=== PATIENT | female | born 1960 | race Caucasian/White ===

== ENCOUNTER 2017-12-19 08:06 | Emergency (ER) | payer OTHER ==
[~2017-12-19] VITALS: Ht 162.6 cm; Wt 115.7 kg
[~2017-12-19 08:06] MED LIST: AMLODIPINE BESYL5 M1 PO; COLESTID1 GM; DOXYCYCLINE 10100 MG PO; ESTROVEN 155 M155 MG PO; LEVOTHYROXINE0.2 M1; LISINOPRIL10 MG PO; LOPRESSOR50; NORCO 5-325 TA1 EACH; NORCO 5-325 TA1 EACH PO; PROZAC20 MG PO; VASOTEC10 MG; VENLAFAXIN75 MG/1 T2; VITAMIN D 5050000 I1; XANAX 0.5 MG0.5 MG PO; levoxyl
[2017-12-19] MEDS ORDERED: BRINTELLIX10 MG PO (08:20)
[2017-12-19] MEDS ORDERED: VASOTEC10 MG PO (08:20)
[2017-12-19] MEDS ORDERED: ESTRADIOL 1 MG T1 M1 PO (08:21)
[2017-12-19 08:55] LABS: INFLUENZA A ANTIGEN None Detected (None Detect); INFLUENZA B ANTIGEN None Detected (None Detect)
[2017-12-19] MEDS ORDERED: ZPAK PO (08:58)
[2017-12-19 09:15] VITALS: BP 144/83
== END 2017-12-19 09:16 | disposition home or self-care (01) ==
LOC: M.ERS 08:06
PROVIDERS: Emergency Medicine Emergency Medical Services
DX: J18.9 Pneumonia, unspecified organism (principal); I10 Essential (primary) hypertension; R05 Cough; R51 Headache; Z90.710 Acquired absence of both cervix and uterus; Z98.51 Tubal ligation status; Z90.49 Acquired absence of other specified parts of digestive tract; Z88.0 Allergy status to penicillin; Z91.041 Radiographic dye allergy status; Z85.850 Personal history of malignant neoplasm of thyroid

== ENCOUNTER 2018-03-06 08:41 | Emergency (ER) | payer OTHER ==
[~2018-03-06] VITALS: Ht 162.6 cm; Wt 108.9 kg
[~2018-03-06 08:41] MED LIST changes: +BRINTELLIX10 MG PO; +ESTRADIOL 1 MG T1 M1 PO; +VASOTEC10 MG PO; +ZPAK PO
[2018-03-06] MEDS ORDERED: MEDROL DOSPAK21 TA1 PO (09:06)
[2018-03-06] MEDS ORDERED: KEFLEX500 M1 PO (09:06)
[2018-03-06] MEDS ORDERED: SSD CREAM 1% 5050 GM TOP (09:07)
[2018-03-06 09:12] VITALS: BP 131/80
== END 2018-03-06 09:12 | disposition home or self-care (01) ==
LOC: M.ERS 08:41
DX: T65.891A Toxic effect of other specified substances, accidental (unintentional), initial encounter (principal); L25.3 Unspecified contact dermatitis due to other chemical products; I10 Essential (primary) hypertension; F32.9 Major depressive disorder, single episode, unspecified; E89.0 Postprocedural hypothyroidism; F17.210 Nicotine dependence, cigarettes, uncomplicated; Z90.710 Acquired absence of both cervix and uterus; Z85.850 Personal history of malignant neoplasm of thyroid; Z88.0 Allergy status to penicillin; Z91.041 Radiographic dye allergy status; Y92.89 Other specified places as the place of occurrence of the external cause

== ENCOUNTER → 2018-06-26 | Outpatient (CLI) | payer OTHER ==
[~2018-06-26] MED LIST changes: +KEFLEX500 M1 PO; +MEDROL DOSPAK21 TA1 PO; +SSD CREAM 1% 5050 GM TOP
[2018-06-26 11:29] LABS: ABSOLUTE BASOPHILS 0.1 thou/uL (0.0-0.2); ABSOLUTE EOSINOPHILS 0.1 thou/uL (0.0-0.7); ABSOLUTE LYMPHOCYTES 2.7 thou/uL (0.8-5.3); ABSOLUTE MONOCYTES 0.5 thou/uL (0.0-1.2); ABSOLUTE NEUTROPHILS 6.2 thou/uL (1.6-8.1); BASOPHILS 1.1 %; EOSINOPHILS 1.4 %; HEMATOCRIT 44.6 % (37.0-47.0); LYMPHOCYTES 28.3 %; MCHC 33.5 g/dL (28.0-37.0); MCV 92.4 fL (80.0-100.0); MONOCYTES 4.7 %; MPV 6.8 fl. (7.2-11.1); NUCLEATED RBCS 0 /100WBC; PLATELET COUNT* 303 thou/uL (150-400); POLYS 64.5 %; RBC 4.83 mil/uL (4.20-5.00); WBC 9.7 thou/uL (4.0-11.0)
[2018-06-26 11:42] LABS: ALBUMIN 3.6 g/dL (3.4-5.0); ALKALINE PHOSPHATASE 74 U/L (46-116); ANION GAP 4 mmol/L (7-16); BUN 17 mg/dL (7-18); CALCIUM 8.2 mg/dL (8.5-10.1); CHLORIDE 103 mmol/L (98-107); CHOLESTEROL 260 mg/dL (<200); CO2 31 mmol/L (21-32); CREATININE 0.6 mg/dL (0.6-1.3); GLUCOSE 91 mg/dL (70-99); HDL CHOLESTEROL 67 mg/dL (>40); LDL CHOLESTEROL 171 mg/dL (<100); POTASSIUM 4.7 mmol/L (3.5-5.1); SERUM ASSESSMENT Clear; SGOT 12 U/L (15-37); SGPT 15 U/L (30-65); SODIUM 138 mmol/L (136-145); TC:HDL 3.9 Ratio (Not establshd); TOTAL BILIRUBIN 0.4 mg/dL (<0.1-1.0); TOTAL PROTEIN 7.4 g/dL (6.4-8.2); TRIGLYCERIDE 113 mg/dL (<150); VLDL 23 mg/dL (<40)
[2018-06-27 02:06] LABS: GLYCOHEMOGLOBIN (HGB A1C) 5.2 % (4.8-5.6)
--- NOTE | 2018-06-28 10:21 | EKG ---
[place] [address] ELECTROCARDIOGRAM REPORT Name: KYLEE SUMNER Room: [facility]#: [id number] Admission: 06/26/18 Attend Phys: CANDIDA Diamond Discharge: Date of : 62 Report #: [id number] THIS REPORT FOR: //name// [facility] Test Date: 2018-06-26 Test Time: 11:34:02 Pat Name: KYLEE TRINHORY Department: Room: Gender: Building And Grounds Supervisor: : 1960 Requested By: Shante Giang Order Number: [id number] Reading MD: Kun Salvador Measurements Intervals [place] Rate: 69 P: 51 [place]: 160 QRS: 18 QRSD: 99 T: 31 QT: 434 QTc: 465 Interpretive Statements Sinus rhythm Compared to ECG 04/09/2017 14:00:34 Inferior Q waves no longer present Q waves no longer present Electronically Signed On 06-28-2018 10:21:09 CDT by Kun Salvador [email or web address] <ELECTRONICALLY SIGNED> By: Kun Salvador MD, [facility] 06/28/18 1021 1134 1134 Kun Salvador MD, [facility] /EPI
== END ==
LOC: M.RAD 10:56
PROVIDERS: Nurse Practitioner Family
DX: M19.021 Primary osteoarthritis, right elbow (principal); I10 Essential (primary) hypertension; N95.1 Menopausal and female climacteric states; E03.9 Hypothyroidism, unspecified; E55.9 Vitamin D deficiency, unspecified; Z85.850 Personal history of malignant neoplasm of thyroid

== ENCOUNTER → 2018-07-17 | Outpatient (CLI) | payer OTHER ==
--- NOTE | 2018-07-17 15:53 | 2DMMODE ---
[place] [address] 2 D/M-MODE ECHOCARDIOGRAM Name: KYLEE SUMNER Room: [facility]#: [id number] Admission: 07/17/18 Attend Phys: Kun Salvador, Discharge: Date of : 62 Date of Service: 07/17/18 1553 Report #: [id number] THIS REPORT FOR: //name// APPROVED REPORT Study performed: 07/17/2018 08:03:27 EXAM: Comprehensive 2D, Doppler, and color-flow Echocardiogram Patient Location: Out-Patient Status: routine BSA: 2.11 HR: 77 bpm BP: 132/98 mmHg Other Information Study Quality: Good Indications Murmur Palpitations 2D Dimensions LVEF(%): 73.31 (>50%) IVSd: 12.35 (7-11mm) LVOT Diam: 20.32 (18-24mm) LVDd: 43.24 mm PWd: 10.71 (7-11mm) Ascending Ao: 34.68 (22-36mm) LVDs: 25.06 (25-40mm) Aortic Root: 26.87 mm Mace's LVEF: 73.31 % Volumes Left Atrial Volume (Systole) LA ESV Index: 15.20 mL/m2 Aortic Valve AoV Peak Dong.: 1.34 m/s AO Peak Gr.: 7.16 mmHg LVOT Max P.48 mmHg AO Mean Gr.: 3.46 mmHg LVOT Mean P.15 mmHg LVOT Max V: 0.79 m/s AO V2 VTI: 24.68 cm LVOT Mean V: 0.49 m/s HANNY (VTI): 2.45 cm2 LVOT V1 VTI: 18.62 cm Mitral Valve E/A Ratio: 0.84 [place] [address] 2 D/M-MODE ECHOCARDIOGRAM Name: KYLEE SUMNER Room: [facility]#: [id number] Admission: 07/17/18 Attend Phys: Kun Salvador, Discharge: Date of : 62 Date of Service: 07/17/18 1553 Report #: [id number] MV Decel. Time: 256.92 ms MV E Max Dong.: 0.59 m/s MV PHT: 74.51 ms MVA (PHT): 2.95 cm2 TDI E/Lateral E': 4.21 E/Medial E': 6.56 Medial E' Dong.: 0.09 m/s Lateral E' Dong.: 0.14 m/s Pulmonary Valve PV Peak Dong.: 0.81 m/s PV Peak Gr.: 2.62 mmHg Left Ventricle The left ventricle is normal size. There is normal LV segmental wall motion. There is normal left ventricular wall thickness. Left ventricular systolic function is normal. The left ventricular ejection fraction is within the normal range. LVEF is 55-60%. Grade I - abnormal relaxation pattern. Right Ventricle The right ventricle is normal size. The right ventricular systolic function is normal. Atria The left atrium size is normal. The right atrium size is normal. Aortic Valve The aortic valve is normal in structure. No aortic regurgitation is present. There is no aortic valvular stenosis. Mitral Valve The mitral valve is normal in structure. There is no mitral valve regurgitation noted. No evidence of mitral valve stenosis. Tricuspid Valve The tricuspid valve is normal in structure. Trace tricuspid regurgitation. Pulmonic Valve The pulmonary valve is normal in structure. There is no pulmonic valvular regurgitation. Great Vessels The aortic root is normal in size. IVC [place] [address] 2 D/M-MODE ECHOCARDIOGRAM Name: TAISHAKYLEE Room: [facility]#: [id number] Admission: 07/17/18 Attend Phys: Kun Salvador, Discharge: Date of : 62 Date of Service: 07/17/18 1553 Report #: [id number] collapses with >50% inspiration Pericardium There is no pericardial effusion. <Conclusion> Left ventricular systolic function is normal. The left ventricular ejection fraction is within the normal range. <ELECTRONICALLY SIGNED> By: Arie De Los Santos MD, [facility] 07/17/18 1553 1553 1553 Arie De Los Santos MD, [facility] /INF
== END ==
LOC: M.CRD 07:45
DX: R01.1 Cardiac murmur, unspecified (principal); R00.2 Palpitations

== ENCOUNTER → 2019-01-28 | Outpatient (CLI) | payer OTHER | LOC: M.RAD 14:49 | DX: M17.11 Unilateral primary osteoarthritis, right knee (principal) ==

== ENCOUNTER → 2019-01-31 | Outpatient (CLI) | payer OTHER | LOC: M.MRI 11:15 | DX: M25.861 Other specified joint disorders, right knee (principal); I48.91 Unspecified atrial fibrillation; F32.9 Major depressive disorder, single episode, unspecified; I10 Essential (primary) hypertension; E78.00 Pure hypercholesterolemia, unspecified; G43.909 Migraine, unspecified, not intractable, without status migrainosus; Z90.710 Acquired absence of both cervix and uterus; Z85.850 Personal history of malignant neoplasm of thyroid ==

== ENCOUNTER → 2020-02-24 | Outpatient (CLI) | payer OTHER ==
[~2020-02-24] MED LIST changes: +LEXAPRO 10 MG T10 M2 PO; +LOPRESSOR50 PO
== END ==
LOC: M.RAD 12:03
DX: M25.761 Osteophyte, right knee (principal); M25.562 Pain in left knee

== ENCOUNTER → 2020-12-07 | Outpatient (CLI) | payer OTHER | LOC: M.MRI 08:04 → M.RAD 08:04 → M.MRI 08:30 | PROVIDERS: ATTEND Orthopaedic Surgery | DX: Z12.31 Encounter for screening mammogram for malignant neoplasm of breast (principal); M17.11 Unilateral primary osteoarthritis, right knee; M25.761 Osteophyte, right knee ==

== ENCOUNTER → 2020-12-21 | Outpatient (CLI) | payer OTHER ==
[~2020-12-21] MED LIST changes: +LEVOTHYROXINE200 MC1 PO; +LEXAPRO20 MG PO; +OXYCODONE HCL 55 MG PO; +XARELTO10 M1 PO
[2020-12-21 13:21] LABS: HEMATOCRIT 45.6 % (37.0-47.0); HEMOGLOBIN 15.3 gm/dL (12.0-15.0); MCH 29.7 pg (26.0-34.0); MCHC 33.5 g/dL (28.0-37.0); MCV 88.6 fL (80.0-100.0); MPV 6.9 fl. (7.2-11.1); RBC 5.15 mil/uL (4.20-5.00); RDW-CV 13.1 % (10.5-14.5)
[2020-12-21 13:34] LABS: CALCIUM 8.7 mg/dL (8.5-10.1); CREATININE 0.7 mg/dL (0.6-1.3); POTASSIUM 4.4 mmol/L (3.5-5.1); PROTIME 10.2 Seconds (9.20-11.50); TOTAL BILIRUBIN 0.3 mg/dL (<0.1-1.0); TOTAL PROTEIN 7.6 g/dL (6.4-8.2)
[2020-12-21 13:57] LABS: URINE BILIRUBIN NEGATIVE (Negative); URINE BLOOD NEGATIVE (Negative); URINE CLARITY CLEAR; URINE COLOR YELLOW; URINE GLUCOSE-RANDOM NEGATIVE (Negative); URINE KETONES NEGATIVE (Negative); URINE LEUKOCYTES-REFLEX NEGATIVE (Negative); URINE NITRITE-REFLEX NEGATIVE (Negative); URINE PROTEIN NEGATIVE (Negative); URINE SPECIFIC GRAVITY 1.025 (1.005-1.030); URINE UROBILINOGEN 0.2 E.U./dl (0.2-1.0)
--- NOTE | 2020-12-21 15:26 | EKG ---
[place] [address] ELECTROCARDIOGRAM REPORT Name: TAISHAKYLEE FADI Room: [facility]#: [id number] Admission: 12/21/20 Attend Phys: Navneet Ramirez, Discharge: Date of : 62 Date of Service: 12/21/20 1332 Report #: [id number] THIS REPORT FOR: //name// [facility] Test Date: 2020-12-21 Test Time: 13:32:35 Pat Name: KYLEE SUMNER Department: Room: Gender: F Order Packer Or Packager: : 1960 Requested By: Navneet Ramirez Order Number: [id number] Ekaterina MD: Arie De Los Santos Measurements Intervals [place] Rate: 77 P: 76 [place]: 155 QRS: 49 QRSD: 97 T: 57 QT: 402 QTc: 455 Interpretive Statements Sinus rhythm Abnormal R-wave progression, early transition Probable inferior infarct, old Compared to ECG 05/13/2019 12:20:25 no change Electronically Signed On 12-21-2020 15:26:30 AREA ATTENDANT by Arie De Los Santos [email or web address] <ELECTRONICALLY SIGNED> By: Arie De Los Santos MD, FAC 12/21/20 1526 1332 1332 Arie De Los Santos MD, [facility] /EPI
== END ==
LOC: M.LAB 08:14
PROVIDERS: ATTEND Orthopaedic Surgery
DX: Z01.812 Encounter for preprocedural laboratory examination (principal); Z01.810 Encounter for preprocedural cardiovascular examination; Z20.822 Contact with and (suspected) exposure to COVID-19; M17.11 Unilateral primary osteoarthritis, right knee

== ENCOUNTER 2020-12-28 05:27 | Inpatient (IN) | payer OTHER ==
[~2020-12-28] VITALS: Ht 162.6 cm; Wt 103.4 kg
--- NOTE | ~2020-12-28 | OP ---
[facility] [address] [place] [address] OPERATIVE REPORT Name: KYLEE SUMNER Room: [address] IN [place].#: [id number] Admission: 12/28/20 Attend Phys: Marianna Love Discharge: 12/28/20 Date of : 62 Report #: [id number] THIS REPORT FOR: cc: LEANNE ENGLAND MD Physician not on staff ~ Navneet Ramirez II, DO DATE OF SERVICE: 12/28/2020 PREOPERATIVE DIAGNOSIS: Right knee osteoarthritis. POSTOPERATIVE DIAGNOSIS: Right knee osteoarthritis. PROCEDURE: Right total knee arthroplasty. SURGEON: Navneet Ramirez II, DO. COMMERCIAL ACCOUNTANT: JARRED Lopez. ANESTHESIA: General endotracheal. ESTIMATED BLOOD LOSS: 50 mL. ANTIBIOTICS: Ancef preoperatively. DRAINS: Medium Hemovac. COMPLICATIONS: None. CONDITION OF PATIENT: Stable to recovery room. IMPLANTS: Listed in operative record and progress note. BRIEF HISTORY: The patient was seen in the preoperative area. Preoperative H and P was performed. Site was marked. Questions were answered. Risks and benefits were discussed with the patient in detail about surgery. The patient wished to proceed, assuming all risks. OPERATIVE PROCEDURE: The patient was taken to the operative suite, placed supine on the operating table, given appropriate anesthesia. A well-padded tourniquet applied to upper thigh, which was inflated to 300 mmHg after gravity exsanguination. The operative knee was sterilely prepped and draped. Surgery began by midline incision. This was carried down through the subcutaneous tissues. A medial parapatellar arthrotomy was performed and carried down to bone. Patella was then everted and excess soft tissue was removed from around the femur. Femoral cutting block was then applied, checked with drop sigifredo for [address] [address] OPERATIVE REPORT Name: KYLEE SUMNER Room: [address] IN [facility]#: [id number] Admission: 12/28/20 Attend Phys: Marianna Love Discharge: 12/28/20 Date of : 62 Report #: [id number] rotational alignment, pinned in appropriate position, and appropriate cuts were made. A 4-in-1 cutting block was then applied, checked for rotational alignment, pinned in appropriate position, and appropriate cuts were made. The tibia was then exposed. Excess meniscus was removed. Retractor was placed on collateral ligaments. The tibial cutting block was then applied, pinned in appropriate position, checked with drop sigifredo for rotational alignment and slope, and appropriate cut was made. The tibial bone was removed. The tibial base plate was then applied, checked for rotational alignment with the drop sigifredo and pinned in appropriate position. The femur was then applied and box cut was reamed. This was then trialed with appropriate spacer, which showed excellent fit and fill and excellent stability of the knee through all range of motion. The patella was reamed to appropriate fashion and sized to appropriate size. Three peg holes were drilled and it was then trialed and showed excellent flexion, extension, excellent tracking of the patella within the groove. These trials were then removed. The tibia was punched in appropriate fashion. Bone ends were cleansed with Pulsavac irrigation and cement was applied to final implants. These were then malleted into position and held the knee in extension and compressed to allow cement to cure. After it cured, excess cement was removed using a [place] and osteotome. Wound was then copiously irrigated and the final spacer was then malleted into position. The tourniquet was deflated. Hemostasis was obtained with electrocautery. Pain cocktail was injected. PRP gel sprayed throughout the internal aspects of the knee. Medium Hemovac drain was applied. Capsule was closed with #2 FiberWire and #1 Vicryl in [id number] fashion. Skin was closed with 2-0 Vicryl and running 3-0 Monocryl. Dermabond and sterile dressing applied. Taran wrap and PolarCare applied. The patient transported to recovery room in stable condition. Counts were correct at the end of the procedure. By: 42 Azucena Ramirez II, DO /nt
[~2020-12-28 05:27] MED LIST changes: -OXYCODONE HCL 55 MG PO; -XARELTO10 M1 PO
[2020-12-28] MEDS ORDERED: XARELTO10 M1 PO (11:13)
[2020-12-28] MEDS ORDERED: OXYCODONE HCL 55 MG PO (11:14)
--- NOTE | 2020-12-29 09:43 | NUR ---
RECIEVED O.T. ORDERS. PT. DISCHARGED ON THE SAME DAY OF SX. DEFERRED THERAPY TO P.T. AT THIS TIME. PLEASE ORDER FURTHER O.T. SERVICES IF NEEDED.
== END 2020-12-28 17:05 | disposition home or self-care (01) | DRG 470 ==
LOC: M.SUR 05:27 → M.TBA 06:59 → EDSTATUS 08:39 → M.SUR 11:25 → M.TBA 17:05 → M.SUR 17:23
PROVIDERS: ADMIT Internal Medicine; ATTEND Internal Medicine
PROC: 3E0T3BZ Introduction of Anesthetic Agent into Peripheral Nerves and Plexi, Percutaneous Approach (ICD-10-PCS; principal; 2020-12-28)
PROC: 0SRC0J9 Replacement of Right Knee Joint with Synthetic Substitute, Cemented, Open Approach (ICD-10-PCS; principal; 2020-12-28)
DX: M17.11 Unilateral primary osteoarthritis, right knee (principal); G47.33 Obstructive sleep apnea (adult) (pediatric); K21.9 Gastro-esophageal reflux disease without esophagitis; I10 Essential (primary) hypertension; I48.91 Unspecified atrial fibrillation; F32.9 Major depressive disorder, single episode, unspecified; E78.00 Pure hypercholesterolemia, unspecified; G43.909 Migraine, unspecified, not intractable, without status migrainosus; Z90.49 Acquired absence of other specified parts of digestive tract; Z90.710 Acquired absence of both cervix and uterus; Z88.0 Allergy status to penicillin; Z91.041 Radiographic dye allergy status

== ENCOUNTER → 2021-02-08 | Outpatient (CLI) | payer OTHER ==
[~2021-02-08] MED LIST changes: +OXYCODONE HCL 55 MG PO; +XARELTO10 M1 PO
== END ==
LOC: M.RAD 08:43
PROVIDERS: ATTEND Orthopaedic Surgery
DX: M25.461 Effusion, right knee (principal); Z96.651 Presence of right artificial knee joint